=== PATIENT | male | born 1955 | race Caucasian/White ===

== ENCOUNTER 2018-03-29 20:37 | Emergency (ER) | payer SELFPAY ==
[2018-03-29 20:37] VITALS: BP 164/96; PULSE 60; RESP 18; TEMP 36.8; O2SAT 99; BMI 32.2
[2018-03-29] MEDS: Diphth,Pertuss(Acell),Tet Vac 0.5 ML Vial IM (21:11)
--- NOTE | 2018-03-29 22:06 | ED.VISSUMM ---
- ER Visit Summary Date of Service: 03/29/18 Chief Complaint: Left index finger laceration History of Present Illness: The patient is a 63 M who excellently cut his left index finger with a knife while working with drywall. This occurred shortly prior to presentation. No paresthesias weakness or loss of function. He is uncertain of his last tetanus immunization. Physical Examination: Afebrile vitals unremarkable Heart regular Lungs clear 3 cm laceration over the palmar side of the left index finger overlying the distal interphalangeal joint he has normal flexion and extension no tendon laceration mild active bleeding Test Results: Not indicated Emergency Department Course and Treatment: Patient was anesthetized utilizing a digital block with 1% lidocaine. He had good anesthesia. The wound was explored. There is no tendon laceration. This was cleansed with sterile saline. Laceration was closed with a total of 6 simple interrupted 4-0 nonabsorbable Sutures. Patient instructed on local wound care. He understands to return for new or worsening symptoms was discharged home. Treatment Plan: [] Disposition: Discharge Impression: Left index finger laceration This note was generated with [employer] dictation software. It may contain incorrect words, spelling, and punctuation that were not noted in review of the chart prior to signing ED Disposition - Plan for ED Patient: Chief Complaint: Laceration Referrals: Care Physician,No Primary [Primary Care Provider] -
--- NOTE | 2018-03-29 22:07 | ED.DEP ---
ED Disposition - Plan for ED Patient: Chief Complaint: Laceration Instructions: ED Laceration Ext Sutr Stap Tape Referrals: Care Physician,No Primary [Primary Care Provider] -
== END 2018-03-29 22:21 | disposition home or self-care (01) ==
LOC: ED 21:18
PROVIDERS: Emergency Provider Emergency Medicine
DX: S61.211A Laceration without foreign body of left index finger without damage to nail, initial encounter (principal); W26.0XXA Contact with knife, initial encounter; Y93.89 Activity, other specified; Y92.9 Unspecified place or not applicable
CPT/HCPCS: 12002; 90471; 90715; 99283